=== PATIENT | female | born 1950 | race Caucasian/White ===

== ENCOUNTER 2021-01-03 13:57 | Outpatient (CLI) | payer MEDICARE, OTHER | END 2021-01-03 13:58 | disposition home or self-care (01) | LOC: CSHMAMMO 13:57 | PROVIDERS: ATTEND Obstetrics & Gynecology | DX: Z12.31 Encounter for screening mammogram for malignant neoplasm of breast (principal); Z13.820 Encounter for screening for osteoporosis; M85.89 Other specified disorders of bone density and structure, multiple sites; Z91.89 Other specified personal risk factors, not elsewhere classified | CPT/HCPCS: 77063; 77067; 77080 ==

== ENCOUNTER 2021-02-14 10:37 | Outpatient (CLI) | payer MEDICARE, OTHER ==
[2021-02-14 22:42] LABS: SARS-CoV-2 PCR by NAA Not Detected (NotDetected)
== END 2021-02-14 10:38 | disposition home or self-care (01) ==
LOC: CSHLAB 10:37
PROVIDERS: ATTEND Internal Medicine Gastroenterology
DX: Z20.822 Contact with and (suspected) exposure to COVID-19 (principal); K50.90 Crohn's disease, unspecified, without complications
CPT/HCPCS: U0003; U0005

== ENCOUNTER 2022-02-14 16:32 | Observation (INO) | payer MEDICARE, OTHER ==
[2022-02-14 17:28] LABS: #Neutrophils 10.8 10x3/uL (1.5-8.4); %Basophils 0.1 % (0.0-2.0); %Eosinophils 0.1 % (0.0-6.0); %Lymphocytes 10.8 % (18.0-47.0); %Monocytes 7.3 % (0.0-10.0); %Neutrophils 80.8 % (40.0-75.0); Hemoglobin 11.2 g/dL (12.0-15.5); Mean Corpuscular HGB CONC 35.9 g/dL (32.0-36.0); Mean Corpuscular Hemoglobin 31.7 pg (27.0-33.0); Mean Corpuscular Volume 88.4 fl (81.6-98.3); Mean Platelet Volume 9.7 fl (7.4-10.4); Platelet Count 186 10x3/uL (150-450); RBC Distribution Width 11.9 % (11.5-14.5); Red Blood Cell (RBC) Count 3.53 10x6/uL (3.90-5.03); White Blood Cell (WBC) Count 13.4 10x3/uL (3.5-10.5)
[2022-02-14 17:37] LABS: Actual Bicarbonate (HCO3v) 23 mEq/L (22-28); Base Excess -0.2 mEq/L (-2.0 to +3.0); Calcium, Ionized (venous) 1.06 mmol/L (1.16-1.32); Chloride (VBG) 106 mmol/L (98-106); Critical Notified Whom: MCDMI; Hemoglobin (Hb) 11.7 g/dL (11.7-16.1); Potassium (VBG) 3.32 mmol/L (3.70-5.30); Puncture Site Other Site; RapidComm Collect By LAB; pH (venous) 7.47 (7.32-7.43)
[2022-02-14 17:38] LABS: ALT (SGPT) 94 U/L (8-55); AST (SGOT) 107 U/L (5-34); Albumin 3.5 g/dL (3.4-4.8); Alkaline Phosphatase 47 U/L (40-110); Anion Gap 14 mmol/L (10-20); BUN (Urea Nitrogen) 32 mg/dL (9.8-20.1); Bilirubin, Total 0.5 mg/dL (0.2-1.2); CK (CPK) 1397 U/L (29-168); Calc. Creatinine Clearance 0 mL/min (70-130); Calcium 8.4 mg/dL (7.8-10.44); Carbon Dioxide 21 mmol/L (23-31); Chloride 106 mmol/L (98-107); Estimated GFR 55; Globulin 1.9 g/dL (2.4-3.5); Glucose 225 mg/dL (80-115); Lipase 70 U/L (8-78); Magnesium 1.4 mg/dL (1.6-2.6); Potassium 3.4 mmol/L (3.5-5.1); Protein, Total 5.4 g/dL (5.8-8.1); Sodium 138 mmol/L (136-145)
[2022-02-14 17:48] LABS: Bilirubin 1+ (Negative); Blood, Urine 250 (Negative); Clarity Cloudy (Clear); Glucose, Urine (Dipstick) 50 mg/dL (Negative); Ketone, Urine 5 mg/dL (Negative); Leukocyte Negative (Negative); Nitrite Negative (Negative); Protein, Urine (Dipstick) 100 mg/dl (Neg-Trace); Specific Gravity, Urine 1.025 (1.005-1.030); Urobilinogen Normal mg/dL (Less than 2)
[2022-02-14 17:53] LABS: Bacteria/HPF Rare-Few HPF (None Seen); WBC/HPF 0-3 HPF (0-3)
[2022-02-14 17:58] LABS: CKMB 11.4 ng/mL (0-6.6)
[2022-02-14 19:28] LABS: Troponin I 0.038 ng/mL (< 0.028)
[2022-02-14 19:37] LABS: SARS-CoV-2 NAA Rapid Test Not Detected (NotDetected)
[2022-02-14 19:56] VITALS: BMI 45.4
[2022-02-14] MEDS ORDERED: Magnesium 2 GM/50 ML(in water) 2 GM in Premix Bag 1 BAG IVPB SCH (20:00)
[2022-02-14] MEDS ORDERED: Potassium Chloride 20 MEQ TAB PO SCH (20:00)
[2022-02-14] MEDS ORDERED: Magnesium 2 GM/50 ML BAG (IN WATER) ONE (20:10)
[2022-02-14] MEDS: Sodium Chloride 0.9% 1,000 ML IV SCH (20:15)
[2022-02-14 22:40] LABS: Troponin I 0.034 ng/mL (< 0.028)
[2022-02-15 04:29] LABS: #Monocytes 0.7 10x3/uL (0.0-1.1); #Neutrophils 8.3 10x3/uL (1.5-8.4); %Eosinophils 0.3 % (0.0-6.0); %Lymphocytes 9.8 % (18.0-47.0); %Monocytes 7.1 % (0.0-10.0); Lactic Acid 1.2 mmol/L (0.5-2.2); Mean Corpuscular HGB CONC 34.8 g/dL (32.0-36.0); Mean Corpuscular Hemoglobin 30.8 pg (27.0-33.0); Mean Corpuscular Volume 88.3 fl (81.6-98.3); Mean Platelet Volume 9.6 fl (7.4-10.4); Platelet Count 154 10x3/uL (150-450); Red Blood Cell (RBC) Count 3.25 10x6/uL (3.90-5.03); White Blood Cell (WBC) Count 10.1 10x3/uL (3.5-10.5)
[2022-02-15 04:44] LABS: ALT (SGPT) 72 U/L (8-55); AST (SGOT) 87 U/L (5-34); Albumin 2.9 g/dL (3.4-4.8); Alkaline Phosphatase 40 U/L (40-110); Anion Gap 13 mmol/L (10-20); BUN (Urea Nitrogen) 23 mg/dL (9.8-20.1); Bilirubin, Total 0.5 mg/dL (0.2-1.2); CK (CPK) 1248 U/L (29-168); Calc. Creatinine Clearance 105 mL/min (70-130); Calcium 7.7 mg/dL (7.8-10.44); Carbon Dioxide 21 mmol/L (23-31); Chloride 112 mmol/L (98-107); Estimated GFR 77; Globulin 1.9 g/dL (2.4-3.5); Glucose 136 mg/dL (80-115); Potassium 3.6 mmol/L (3.5-5.1); Protein, Total 4.8 g/dL (5.8-8.1); Sodium 142 mmol/L (136-145)
[2022-02-15] MEDS ORDERED: Acetaminophen 500 MG TAB PO PRN (08:01)
[2022-02-15] MEDS ORDERED: FLU VACC QS2022-23(65YR UP)/PF 240 MCG/0.7 ML SYRINGE IM ONE (09:00)
[2022-02-15] MEDS ORDERED: Losartan 25 MG TAB PO SCH (09:00)
[2022-02-15] MEDS: Sodium Chloride 0.9% 1,000 ML IV SCH (09:18)
[2022-02-15 09:24] VITALS: BP 124/73; TEMP 98.3
[2022-02-15] MEDS ORDERED: Mesalamine DR 400 mg Capsule PO SCH (21:00)
[2022-02-18 16:15] LABS: ANA Symphony (Qualitative) Negative (Negative); ANA Symphony (Quantitative) 0.2 Ratio (< 0.7 Negative); CCP IgG Antibody 0.7 EliAU/mL (<7 Negative); Rheumatoid Factor IgA Antibody 1.8 IU/mL (<14 Negative); Rheumatoid Factor IgM Antibody Less than 0.5 IU/mL (<3.5 Negative); dsDNA IgG Antibody Less than 0.5 IU/mL (<10 Negative)
== END 2022-02-15 11:00 | disposition home or self-care (01) ==
LOC: CSHERS 16:32 → CSHTELE 19:41
PROVIDERS: ADMIT Internal Medicine; ATTEND Internal Medicine
DX: M62.82 Rhabdomyolysis (principal); E83.42 Hypomagnesemia; E87.6 Hypokalemia; D72.829 Elevated white blood cell count, unspecified; R53.83 Other fatigue; Z87.19 Personal history of other diseases of the digestive system; E11.9 Type 2 diabetes mellitus without complications; E66.9 Obesity, unspecified; Z68.42 Body mass index [BMI] 45.0-49.9, adult; Z20.822 Contact with and (suspected) exposure to COVID-19; I10 Essential (primary) hypertension; E78.5 Hyperlipidemia, unspecified; G47.33 Obstructive sleep apnea (adult) (pediatric); E86.0 Dehydration; R74.01 Elevation of levels of liver transaminase levels; Z88.5 Allergy status to narcotic agent; Z88.2 Allergy status to sulfonamides; Z79.84 Long term (current) use of oral hypoglycemic drugs; Z79.899 Other long term (current) drug therapy
CPT/HCPCS: 0240U; 71045; 80053; 82085; 82550 ×2; 82553; 82805; 82962; 83520; 83605 ×2; 83615; 83690; 83735; 84484 ×2; 85025; 85652; 86038; 86140; 86200; 86225; 93005; 96360; 99285; 36415; 36416; 81003; 81015; 84443; 96361; 96374; G0378; J3475; J7050

== ENCOUNTER 2023-04-30 15:16 | Outpatient (CLI) | payer MEDICARE | END 2023-04-30 15:17 | disposition home or self-care (01) | LOC: CSHMAMMO 15:16 | PROVIDERS: ATTEND Internal Medicine | DX: Z12.31 Encounter for screening mammogram for malignant neoplasm of breast (principal); M81.0 Age-related osteoporosis without current pathological fracture; M85.851 Other specified disorders of bone density and structure, right thigh; M85.852 Other specified disorders of bone density and structure, left thigh; Z91.89 Other specified personal risk factors, not elsewhere classified | CPT/HCPCS: 77063; 77067; 77080 ==